=== PATIENT | male | born 1990 | race Caucasian/White ===

== ENCOUNTER → 2017-03-26 | Outpatient (CLI) | payer BC ==
--- NOTE | 2017-03-26 08:18 | RAD ---
EXAM: Scrotal sonogram with Doppler. HISTORY: Enlarged right testicle. COMPARISON: None. FINDINGS: Grayscale and Doppler analysis of the scrotum and contents was performed with Doppler. The right testicle measures 4.5 x 3.2 x 3.0 cm. The parenchyma is homogeneous without focal lesions. The epididymis appears normal. Internal flow appears normal. There is a moderate to large uncomplicated appearing right hydrocele. The left testicle measures 3.9 x 2.4 x 2.1 cm. The parenchyma is homogeneous without focal lesions. The epididymis appears normal. Internal flow appears normal. There is a small hydrocele. IMPRESSION: 1. Moderate to large right hydrocele. The right testicle itself is unremarkable. 2. Small left hydrocele.
== END | disposition home or self-care (01) ==
LOC: US 07:38
PROVIDERS: ATTEND Internal Medicine
DX: N43.3 Hydrocele, unspecified (principal)
CPT/HCPCS: 76870